=== PATIENT | female | born 1950 | race Caucasian/White ===

== ENCOUNTER 2024-03-26 07:59 | Day surgery (SDC) | payer OTHER ==
[~2024-03-26] VITALS: Ht 160 cm; Wt 81.6 kg
[~2024-03-26 07:59] MED LIST: CEFAZOLIN SOD 2 GM in D5W 50 ML IV ONE
[2024-03-26] MEDS ORDERED: ACETAMINOPHEN 500 MG TABLET ONE ×2 (08:32→08:35)
[2024-03-26] MEDS ORDERED: SCOPOLAMINE HYDROBROMIDE 1 MG PATCH .72 H (TRANSDERM-SCOP) TD ONE (08:32)
[2024-03-26] MEDS ORDERED: GABAPENTIN 300 MG CAPSULE ONE (08:33)
[2024-03-26] MEDS ORDERED: oxyCODONE HCL 10 MG TAB.ER.12H PO ONE (08:33)
[2024-03-26] MEDS: SCOPOLAMINE HYDROBROMIDE 1 MG PATCH .72 H (TRANSDERM-SCOP) TD ONE (09:00)
[2024-03-26] MEDS: GABAPENTIN 300 MG CAPSULE PO ONE (09:00)
[2024-03-26] MEDS: ACETAMINOPHEN 500 MG TABLET PO ONE (09:00)
[2024-03-26] MEDS ORDERED: ceFAZolin SODIUM 1 GM VIAL ONE (09:36)
[2024-03-26] MEDS: oxyCODONE HCL 10 MG TAB.ER.12H PO ONE (09:39)
[2024-03-26] MEDS ORDERED: METOCLOPRAMIDE HCL 10 MG/2 ML VIAL IVP PRN (10:00)
[2024-03-26] MEDS ORDERED: BISACODYL 10 MG/SUPPOSITORY RC PRN (10:00)
[2024-03-26] MEDS ORDERED: LACTULOSE 20 GM/30 ML UDC PO PRN (10:00)
[2024-03-26] MEDS ORDERED: DIPHENHYDRAMINE HCL 25 MG CAPSULE PO PRN (10:00)
[2024-03-26] MEDS ORDERED: HYDROmorphone 1 MG/ML INJ. CARTRIDGE IVP PRN ×4 (10:30→11:00)
[2024-03-26] MEDS ORDERED: LR 1,000 ML IV SCH (10:30)
[2024-03-26] MEDS ORDERED: MEPERIDINE HCL/PF 25 MG/ML DISP.SYRIN IVP PRN (10:30)
[2024-03-26] MEDS ORDERED: oxyCODONE HCL 5 MG TABLET PO PRN ×2 (11:00)
[2024-03-26] MEDS ORDERED: LORATADINE 10 MG TABLET PO PRN (11:00)
[2024-03-26] MEDS ORDERED: traMADol HCL HCL 50 MG TABLET (ULTRAM) PO PRN (11:00)
[2024-03-26] MEDS ORDERED: ceFAZolin SODIUM 2 GM in D5W 50 ML IV SCH (11:15)
[2024-03-26] MEDS ORDERED: ONDANSETRON HCL 4 MG/2 ML VIAL IVP PRN (11:45)
[2024-03-26] MEDS ORDERED: TAMSULOSIN HCL 0.4 MG CAP PO ONE (12:00)
[2024-03-26 12:47] VITALS: BP_SYST 135; PULSE 56; RESP 20; TEMP 96.4; O2SAT 99
[2024-03-26] MEDS ORDERED: HYDROmorphone 1 MG/ML INJ. CARTRIDGE ONE (13:20)
[2024-03-26] MEDS: HYDROmorphone 1 MG/ML INJ. CARTRIDGE IVP PRN (13:20)
[2024-03-26] MEDS ORDERED: KETOROLAC TROMETHAMINE 10 MG TABLET (TORADOL) PO SCH (14:00)
[2024-03-26] MEDS ORDERED: ACETAMINOPHEN 500 MG TABLET PO SCH (14:00)
[2024-03-26] MEDS ORDERED: ONDANSETRON HCL 4 MG/2 ML VIAL ONE (14:00)
[2024-03-26] MEDS: ONDANSETRON HCL 4 MG/2 ML VIAL IVP PRN (14:00)
[2024-03-26] MEDS ORDERED: METOCLOPRAMIDE HCL 10 MG/2 ML VIAL ONE (14:44)
[2024-03-26] MEDS: METOCLOPRAMIDE HCL 10 MG/2 ML VIAL IVP PRN (15:15)
[2024-03-26] MEDS ORDERED: SENNOSIDES/DOCUSATE SODIUM 1 TAB TABLET(SENOKOT-S) PO SCH (21:00)
[2024-03-27] MEDS ORDERED: TAMSULOSIN HCL 0.4 MG CAP PO SCH (09:00)
[2024-03-27] MEDS ORDERED: DEXAMETHASONE 1 MG TABLET (DECADRON) PO SCH (09:00)
[2024-03-27] MEDS ORDERED: APIXABAN 2.5 MG TABLET PO SCH (09:00)
[2024-03-27] MEDS ORDERED: CELECOXIB 200 MG CAPSULE PO SCH (11:00)
== END 2024-03-26 16:00 | disposition home or self-care (01) ==
LOC: SDS 07:59 → SMU 08:02 → EDSTATUS 09:45 → SDS 16:00
PROVIDERS: ATTEND Student in an Organized Health Care Education/Training Program
DX: M17.11 Unilateral primary osteoarthritis, right knee (principal); M25.561 Pain in right knee; M25.761 Osteophyte, right knee; E78.5 Hyperlipidemia, unspecified; E66.9 Obesity, unspecified; Z68.31 Body mass index [BMI] 31.0-31.9, adult; Z88.2 Allergy status to sulfonamides; Z79.899 Other long term (current) drug therapy; Z98.84 Bariatric surgery status; Z98.890 Other specified postprocedural states; Z82.49 Family history of ischemic heart disease and other diseases of the circulatory system; Z83.3 Family history of diabetes mellitus
CPT/HCPCS: 64447; 27447; 87081; 73560; 97110; 97530; 97116; 97162; 88305; 88311; J3490 ×3; J0690; J1100; J0171; J1885; J2765; J2250; J2405; J3370; J3010; J1170; J7060; J7120; C1776 ×3; C1713 ×2; J0696